=== PATIENT | female | born 1945 | race Caucasian/White ===

== ENCOUNTER 2017-01-28 03:06 | Inpatient (IN) | payer MEDICARE, OTHER ==
[~2017-01-28] VITALS: Ht 165.1 cm; Wt 67.4 kg
[2017-01-28 03:49] LABS: ASPARTATE AMINO TRANSFERASE 105 U/L (15-37)
[2017-01-28 03:54] LABS: BLOOD UREA NITROGEN 13 mg/dL (7-18)
[2017-01-28 04:03] LABS: IS PT STATUS REG ER OR PRE ER? YES
[2017-01-28] MEDS ORDERED: LEVO50TA5 PO (04:25)
[2017-01-28] MEDS ORDERED: ALPR0.25 PO (04:25)
[2017-01-28] MEDS ORDERED: OLME20TA PO (04:25)
[2017-01-28] MEDS ORDERED: FLUT12AE2 INH (04:25)
[2017-01-28] MEDS ORDERED: SODIUM CHLORIDE 0.9% 1,000 ML IV ONE (04:53)
[2017-01-28] MEDS ORDERED: ONDANSETRON 2MG/ML, 2ML IVPush PRN ×2 (05:00→06:30)
[2017-01-28] MEDS ORDERED: MORPHINE SULFATE 4 MG/ML, 1ML IVPush PRN (05:00)
[2017-01-28 06:08] VITALS: BP 145/75
[2017-01-28] MEDS ORDERED: NITROGLYCERIN 0.4 MG BOTTLE (25 TABS) SL PRN (06:30)
[2017-01-28] MEDS ORDERED: ENOXAPARIN 40 MG/0.4 ML SQ SCH (06:30)
[2017-01-28] MEDS ORDERED: ACETAMINOPHEN 325 MG TABLET PO PRN (06:30)
[2017-01-28] MEDS ORDERED: NITROGLYCERIN 0.4 MG/SPRAY SL PRN (06:30)
[2017-01-28 07:35] VITALS: BP 134/73
[2017-01-28] MEDS: FLUTICASONE FUROATE 200MCG/INH INH SCH (08:26)
[2017-01-28] MEDS: VALSARTAN 160 MG TABLET PO SCH (08:26)
[2017-01-28] MEDS: LEVOTHYROXINE 50 MCG TABLET PO SCH (08:26)
[2017-01-28 10:10] LABS: IS PT STATUS REG ER OR PRE ER? YES
[2017-01-28] MEDS ORDERED: ALBUTEROL/IPRATROPIUM 2.5MG/0.5MG, 3 ML ONE (11:06)
[2017-01-28 13:23] LABS: DAU SCREEN DISCLAIMER
[2017-01-28 13:29] VITALS: BP 124/82
[2017-01-28 15:24] LABS: IS PT STATUS REG ER OR PRE ER? NO
[2017-01-28 18:45] VITALS: BP 150/82
[2017-01-28] MEDS: maalox/diphenh/lido/sucralfate 5 ML PO SCH (21:31)
[2017-01-29 02:00] VITALS: BP 123/82
[2017-01-29 05:29] LABS: BLOOD UREA NITROGEN 10 mg/dL (7-18)
[2017-01-29 05:32] LABS: ASPARTATE AMINO TRANSFERASE 31 U/L (15-37)
[2017-01-29] MEDS: maalox/diphenh/lido/sucralfate 5 ML PO SCH ×4 (07:00→21:32)
[2017-01-29 07:12] VITALS: BP 115/75
[2017-01-29] MEDS: ENOXAPARIN 40 MG/0.4 ML SQ SCH (08:37)
[2017-01-29] MEDS: LEVOTHYROXINE 50 MCG TABLET PO SCH (08:38)
[2017-01-29] MEDS: VALSARTAN 160 MG TABLET PO SCH (08:38)
[2017-01-29] MEDS: FLUTICASONE FUROATE 200MCG/INH INH SCH (08:40)
[2017-01-29 12:38] VITALS: BP 124/85
[2017-01-29 19:00] VITALS: BP 118/83
[2017-01-29] MEDS: MELATONIN 5 MG TABLET PO SCH (21:32)
[2017-01-29] MEDS ORDERED: MELATONIN 5 MG TABLET PO PRN (23:30)
[2017-01-30 01:19] VITALS: BP 106/69
[2017-01-30 06:52] VITALS: BP 129/70
[2017-01-30] MEDS: ENOXAPARIN 40 MG/0.4 ML SQ SCH (07:19)
[2017-01-30] MEDS: LEVOTHYROXINE 50 MCG TABLET PO SCH (07:19)
[2017-01-30] MEDS: VALSARTAN 160 MG TABLET PO SCH (07:19)
[2017-01-30] MEDS: maalox/diphenh/lido/sucralfate 5 ML PO SCH ×4 (07:20→20:45)
[2017-01-30 12:55] VITALS: BP 131/78
[2017-01-30] MEDS: FLUTICASONE FUROATE 200MCG/INH INH SCH (17:42)
[2017-01-30 18:35] VITALS: BP 107/74
[2017-01-30] MEDS: MELATONIN 5 MG TABLET PO SCH (20:45)
[2017-01-30] MEDS ORDERED: MELATONIN 5 MG TABLET PO PRN (23:00)
[2017-01-31 01:20] VITALS: BP 102/70
[2017-01-31] MEDS: maalox/diphenh/lido/sucralfate 5 ML PO SCH (05:54)
[2017-01-31 07:22] VITALS: BP 126/73
[2017-01-31] MEDS: ENOXAPARIN 40 MG/0.4 ML SQ SCH (08:14)
[2017-01-31] MEDS: LEVOTHYROXINE 50 MCG TABLET PO SCH (08:14)
[2017-01-31] MEDS: VALSARTAN 160 MG TABLET PO SCH (08:14)
[2017-01-31] MEDS: FLUTICASONE FUROATE 200MCG/INH INH SCH (08:14)
== END 2017-01-31 13:55 | disposition home or self-care (01) | DRG 884 ==
LOC: ED 04:20 → EDIP 05:02 → 5SO 05:50 → DCLOUNGE 01-31 13:32
PROVIDERS: ADMIT Internal Medicine; ATTEND Internal Medicine
DX: F09 Unspecified mental disorder due to known physiological condition (principal); F05 Delirium due to known physiological condition; J96.11 Chronic respiratory failure with hypoxia; J84.116 Cryptogenic organizing pneumonia; K21.9 Gastro-esophageal reflux disease without esophagitis; R07.9 Chest pain, unspecified; F19.159 Other psychoactive substance abuse with psychoactive substance-induced psychotic disorder, unspecified; F30.8 Other manic episodes; I10 Essential (primary) hypertension; E03.9 Hypothyroidism, unspecified; D75.89 Other specified diseases of blood and blood-forming organs; I25.10 Atherosclerotic heart disease of native coronary artery without angina pectoris; I27.2 Other secondary pulmonary hypertension; I35.8 Other nonrheumatic aortic valve disorders; I71.9 Aortic aneurysm of unspecified site, without rupture; T38.0X5A Adverse effect of glucocorticoids and synthetic analogues, initial encounter; J44.9 Chronic obstructive pulmonary disease, unspecified; I25.2 Old myocardial infarction; Z87.01 Personal history of pneumonia (recurrent); Z90.11 Acquired absence of right breast and nipple; Z90.49 Acquired absence of other specified parts of digestive tract; Z98.51 Tubal ligation status; J84.10 Pulmonary fibrosis, unspecified
CPT/HCPCS: 36415; 70450; 71010; 76700; 80053; 80061; 80307; 81003; 82533; 83690; 83880; 84145; 84443; 84484; 85025; 85379; 87081; 87880; 93005; 93306; J1650